=== PATIENT | female | born 2005 | race African-American/Black ===

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

== ENCOUNTER 2023-01-27 15:55 | Emergency (ER) | payer OTHER, SELFPAY | END 2023-01-27 19:39 | disposition home or self-care (01) | LOC: CSHERS 15:55 | DX: M25.562 Pain in left knee (principal) ==

== ENCOUNTER 2023-09-19 05:07 | Emergency (ER) | payer OTHER ==
[2023-09-19] MEDS ORDERED: Ketorolac Tromethamine 30 MG (1 mL) VIAL ONE (05:37)
[2023-09-19] MEDS ORDERED: Lorazepam 2 MG/ML VIAL ONE (05:37)
[2023-09-19 06:04] LABS: #Basophils 0.04 10x3/uL (0.0-0.2); #Eosinphils 0.15 10x3/uL (0.0-0.5); #Monocytes 0.91 10x3/uL (0.0-1.1); #Neutrophils 13.21 10x3/uL (1.5-8.4); %Basophils 0.2 % (0.0-2.0); %Eosinophils 0.9 % (0.0-6.0); %Lymphocytes 13.1 % (18.0-47.0); %Monocytes 5.5 % (0.0-10.0); %Neutrophils 79.8 % (40.0-75.0); Hematocrit 36.9 % (34.9-44.5); Hemoglobin 12.3 g/dL (12.0-15.5); Mean Corpuscular HGB CONC 33.3 g/dL (32.0-36.0); Mean Corpuscular Hemoglobin 27.3 pg (27.0-33.0); Mean Corpuscular Volume 81.8 fl (81.6-98.3); Mean Platelet Volume 9.9 fl (7.4-10.4); Platelet Count 311 10x3/uL (150-450); RBC Distribution Width 15.9 % (11.5-14.5); Red Blood Cell (RBC) Count 4.51 10x6/uL (3.90-5.03); White Blood Cell (WBC) Count 16.6 10x3/uL (3.5-10.5)
[2023-09-19 06:09] LABS: BHCG - Serum Negative (NEGATIVE); Pregs Control Background? CLEAR/WHITE (CLR/WHITE); Pregs Control Bar Appear? YES (CONTROL BAR)
[2023-09-19 06:15] LABS: ALT (SGPT) 13 U/L (8-55); AST (SGOT) 14 U/L (5-34); Albumin 3.6 g/dL (3.5-5.0); Alkaline Phosphatase 78 U/L (40-100); Anion Gap 13 mmol/L (10-20); BUN (Urea Nitrogen) 10 mg/dL (7.0-18.7); Bilirubin, Total 0.4 mg/dL (0.2-1.2); Calc. Creatinine Clearance 0 mL/min (70-130); Calcium 8.7 mg/dL (7.8-10.44); Carbon Dioxide 20 mmol/L (22-29); Chloride 107 mmol/L (98-107); Estimated GFR 110; Globulin 3.8 g/dL (2.4-3.5); Glucose 98 mg/dL (70-105); Lipase 28 U/L (8-78); Potassium 3.9 mmol/L (3.5-5.1); Protein, Total 7.4 g/dL (6.0-8.3); Sodium 136 mmol/L (136-145)
[2023-09-19 06:21] LABS: Troponin I Less than 0.010 ng/mL (< 0.028)
[2023-09-19] MEDS ORDERED: Morphine 4 MG/ML VIAL ONE (06:22)
[2023-09-19 06:43] LABS: Bilirubin Neg (Negative); Blood, Urine 25 (Negative); Clarity Slightly Cloudy (Clear); Glucose, Urine (Dipstick) Normal (Negative); Ketone, Urine Negative (Negative); Leukocyte 25 (Negative); Nitrite Positive (Negative); Protein, Urine (Dipstick) Negative (Neg-Trace); Specific Gravity, Urine 1.015 (1.005-1.030); Urobilinogen Normal mg/dL (Less than 2)
[2023-09-19 06:51] LABS: Bacteria/HPF 1+ HPF (None Seen); CAUTI Indications for Culture Pelvic or flank pain; RBC/HPF 0-3 HPF (0-3); Squamous Epithelial 0-3 HPF (0-3); Urine Culture Reflex No No; WBC/HPF 0-3 HPF (0-3)
[2023-09-19] MEDS ORDERED: cefTRIAXone (ROCEPHIN) 2 GM VIAL ONE (07:03)
[2023-09-19 07:09] LABS: Influenza A by NAA Not Detected (NotDetected); Influenza B by NAA Not Detected (NotDetected); SARS-CoV-2 NAA Rapid Test Not Detected (NotDetected)
[2023-09-19] MEDS ORDERED: Iopamidol 370 76% 100 ML VIAL ONE (10:24)
== END 2023-09-19 08:55 | disposition home or self-care (01) ==
LOC: CSHERS 05:07
DX: R07.9 Chest pain, unspecified (principal); F41.0 Panic disorder [episodic paroxysmal anxiety]; N39.0 Urinary tract infection, site not specified
CPT/HCPCS: 36415; 36416; 71045; 71275; 80053; 81001; 83605; 83690; 83880; 84484; 84703; 85025; 85379; 87040; 87086; 93005; 96365; 96375; J0696; J1885; J2060; J2270; Q9967